=== PATIENT | male | born 1955 | race Caucasian/White ===

== ENCOUNTER 2019-03-07 11:25 | Day surgery (SDC) | payer OTHER ==
[~2019-03-07] VITALS: Ht 182.9 cm; Wt 89.2 kg
[~2019-03-07 11:25] MED LIST: Excedrin Extra1 EACH PO
== END 2019-03-07 13:51 | disposition home or self-care (01) ==
LOC: ORSCSDS 11:25
PROVIDERS: Student in an Organized Health Care Education/Training Program
PROC: 0DB78ZX Excision of Stomach, Pylorus, Via Natural or Artificial Opening Endoscopic, Diagnostic (ICD-10-PCS; principal; 2019-03-07 13:00)
PROC: 0DB98ZX Excision of Duodenum, Via Natural or Artificial Opening Endoscopic, Diagnostic (ICD-10-PCS; principal; 2019-03-07 13:00)
PROC: 0DB58ZX Excision of Esophagus, Via Natural or Artificial Opening Endoscopic, Diagnostic (ICD-10-PCS; principal; 2019-03-07 13:00)
DX: R13.10 Dysphagia, unspecified (principal); K29.80 Duodenitis without bleeding; K21.0 Gastro-esophageal reflux disease with esophagitis
CPT/HCPCS: 88305; 88312; 88342; J2704; J7120

== ENCOUNTER 2024-06-29 07:14 | Day surgery (SDC) | payer MEDICARE ==
[~2024-06-29] VITALS: Ht 182.9 cm; Wt 86.7 kg
[~2024-06-29 07:14] MED LIST changes: +Aspir 8181 MG; +ESTEST.62T; +Lactated Ringer's 1,000 ML IV ONE; +MEDR5; +propofoL 50 ML IV ONE
[2024-06-29] MEDS ORDERED: propofoL 50 ML IV ONE (07:37)
[2024-06-29] MEDS ORDERED: Lactated Ringer's 1,000 ML IV ONE ×2 (07:37→08:40)
[2024-06-29 10:20] VITALS: BP 120/80
--- NOTE | 2024-06-29 10:33 | NUR ---
06/29/24 1033 ROSLYN FERRER SEE POST-PROCEDURAL SECT. FOR FURTHER DETAIL
== END 2024-06-29 10:24 | disposition home or self-care (01) ==
LOC: ORSCSDS 07:14
PROVIDERS: Specialist
PROC: 0DB58ZX Excision of Esophagus, Via Natural or Artificial Opening Endoscopic, Diagnostic (ICD-10-PCS; principal; 2024-06-29 09:00)
PROC: 0D758ZZ Dilation of Esophagus, Via Natural or Artificial Opening Endoscopic (ICD-10-PCS; principal; 2024-06-29 09:00)
PROC: 0DJD8ZZ Inspection of Lower Intestinal Tract, Via Natural or Artificial Opening Endoscopic (ICD-10-PCS; principal; 2024-06-29 09:00)
DX: R13.10 Dysphagia, unspecified (principal); Z12.11 Encounter for screening for malignant neoplasm of colon; Z86.0100 Personal history of colon polyps, unspecified; K64.8 Other hemorrhoids; K64.4 Residual hemorrhoidal skin tags
CPT/HCPCS: 43248; 43239; G0105; 88305; C1769; J2704; J7120

== ENCOUNTER 2024-10-02 11:47 | Emergency (ER) | payer MEDICARE ==
[~2024-10-02] VITALS: Ht 182.9 cm; Wt 86.2 kg
[~2024-10-02 11:47] MED LIST changes: -Lactated Ringer's 1,000 ML IV ONE; -propofoL 50 ML IV ONE
[2024-10-02 12:47] VITALS: BP 138/90
== END 2024-10-02 14:27 | disposition home or self-care (01) ==
LOC: ER 11:47
DX: S51.811A Laceration without foreign body of right forearm, initial encounter (principal); S00.81XA Abrasion of other part of head, initial encounter; S00.31XA Abrasion of nose, initial encounter; W29.8XXA Contact with other powered hand tools and household machinery, initial encounter
CPT/HCPCS: 12002; 99282-25